=== PATIENT | female | born 1940 | race Caucasian/White ===

== ENCOUNTER 2019-01-18 14:55 | Emergency (ER) | payer OTHER ==
[~2019-01-18] VITALS: Ht 160 cm; Wt 83.5 kg
[~2019-01-18 14:55] MED LIST: BAYER ASPIRIN R81 MG PO; COZ25 PO; DIA5 PO; FOL1 PO; GABAPENTIN100 M2 PO; LAC PO; MAC100 PO; METOPROLOL25 MG PO; SIMVASTATIN40 M1 PO; TRAMADOL50 MG PO
[2019-01-18 14:59] VITALS: Ht 160 cm; Wt 83.5 kg
[2019-01-18] MEDS ORDERED: SIMVASTATIN40 M1 PO (17:24)
[2019-01-18] MEDS ORDERED: GOOD SENSE OMEP20 MG PO (17:24)
[2019-01-18] MEDS ORDERED: AMARYL4 MG PO (17:24)
[2019-01-18] MEDS ORDERED: COZAAR100 MG PO (17:24)
[2019-01-18] MEDS ORDERED: FERROUS SULFAT325 M2 PO (17:25)
[2019-01-18] MEDS ORDERED: JANUVIA100 M1 PO (17:26)
[2019-01-18] MEDS ORDERED: LINZESS290 MCG PO (17:26)
[2019-01-18] MEDS ORDERED: GABAPENTIN100 M2 PO (17:26)
[2019-01-18] MEDS ORDERED: APAP/HYDROCODON1 T13 PO (17:27)
[2019-01-18] MEDS ORDERED: TRAMADOL HCL50 MG PO (17:27)
[2019-01-18] MEDS ORDERED: DORZOLAMIDE HYD10 ML OU (17:27)
[2019-01-18] MEDS ORDERED: CALCITRIOL0.5 MCG PO (17:28)
[2019-01-18] MEDS ORDERED: D3-50001 TAB PO (17:28)
[2019-01-18] MEDS ORDERED: ASPIR 8181 MG PO (17:28)
[2019-01-18] MEDS ORDERED: PHARMASSURE FO0.4 MG PO (17:28)
[2019-01-18 17:43] LABS: CALCIUM 9.2 mg/dL (8.5-10.1); CARBON DIOXIDE 28.5 mmol/L (21-32); CHLORIDE SERUM 103 mmol/L (98-107); CREATININE SERUM 0.9 mg/dL (0.6-1.0); GLUCOSE SERUM 187 mg/dL (74-106); POTASSIUM SERUM 4.7 mmol/L (3.5-5.1); SODIUM SERUM 136 mmol/L (136-145)
[2019-01-18 17:49] LABS: ALBUMIN 3.6 g/dL (3.4-5.0); ALKALINE PHOSPHATASE 68 U/L (46-116); ALT/SGPT 41 U/L (14-59); AST/SGOT 28 U/L (15-37); BILIRUBIN TOTAL 0.64 mg/dL (0.20-1.00); LIPASE 101 IU/L (73-393); TOTAL PROTEIN, SERUM 6.9 g/dL (6.4-8.2)
[2019-01-18 18:45] VITALS: BP 150/84
== END 2019-01-18 18:45 | disposition home or self-care (01) ==
LOC: ED 14:55
PROVIDERS: Emergency Medicine
DX: K59.00 Constipation, unspecified (principal); I10 Essential (primary) hypertension; E11.9 Type 2 diabetes mellitus without complications
CPT/HCPCS: 36415